=== PATIENT | female | born 1980 | race Caucasian/White ===

== ENCOUNTER → 2017-10-21 | Outpatient (CLI) | payer OTHER ==
[2017-10-21 16:42] LABS: Basophils % (A) 1 %; Eosinophils # (A) 0.2 k/uL (0-0.7); Eosinophils % (A) 3 %; HCT 35.9 % (34.0-46.0); HGB 12.4 gm/dL (11.4-16.0); Lymphocytes # (A) 1.9 k/uL (1.0-4.8); Lymphocytes % (A) 34 %; MCH 31.6 pg (25.0-35.0); MCHC 34.5 g/dL (31.0-37.0); MCV 91.8 fL (80.0-100.0); Mean Platelet Volume 7.3; Monocytes # (A) 0.3 k/uL (0-1.0); Monocytes % (A) 6 %; Neutrophils % (A) 53 %; Platelet Count 242 k/uL (150-450); RBC 3.91 m/uL (3.80-5.40); RDW 12.4 % (11.5-15.5); WBC 5.6 k/uL (3.8-10.6)
== END | disposition home or self-care (01) ==
LOC: LABWHC1 16:12
PROVIDERS: ATTEND Obstetrics & Gynecology
DX: Z01.812 Encounter for preprocedural laboratory examination (principal)
CPT/HCPCS: 36415; 85025

== ENCOUNTER 2017-11-04 06:04 | Day surgery (SDC) | payer OTHER ==
--- NOTE | 2017-10-24 17:51 | P.HPOB ---
History of Present Illness H&P Date: 10/24/17 Chief Complaint: menorrhagia and family planning Patient is a 37-year-old female who has heavy vaginal bleeding that is irregular. Symptoms been present for over a year for workup as previously been done. She ended up having carpal tunnel surgery last her that is why she continued to not have anything done for her bleeding but at this time she is unable to function well due to the heavy bleeding and she is requesting a NovaSure ablation. Risks/benefits/alternatives to a NovaSure procedure with D& C and laparoscopic tubal occlusion were discussed with the patient in detail and all questions were answered for her prior to proceeding to the operating room. Past medical history none: Past surgical history carpal tunnel: Medications oral contraceptives: ALLERGIES none: Social history is unremarkable for tobacco and only occasional alcohol use excellent Patient on physical exam has vital signs are stable and afebrile. Heart regular, lungs clear, extremities without pain. Osteopathic exams unremarkable. Abdomen soft nontender positive bowel sounds are noted and a pelvic exam is otherwise unremarkable. Assessment menorrhagia with family planning. Plan D&C with hysteroscopy and NovaSure with lap scopic tubal occlusion Exam Osteopathic Statement: *. No significant issues noted on an osteopathic structural exam other than those noted in the History and Physical/Consult.
[2017-10-31 08:49] VITALS: BMI 25.4
[~2017-11-04 06:04] MED LIST: DEXAMETHASONE SOD PHOSPHATE 10 MG/ML 1 ML VIAL IV ONE; LACTATED RINGERS 1,000 ML IV SCH; MIDAZOLAM 2 MG/2 ML VIAL IV PRN; ONDANSETRON 4 MG/2 ML VIAL IVP ONE; Pre Op ABX Message 1 EACH MISC MISCELLANE ONE; SCOPOLAMINE 1.5MG/72HR PATCH TRANSDERM ONE; fentaNYL (PF) 50 MCG/ML 2 ML AMP IV PRN
[2017-11-04] MEDS ORDERED: KETOROLAC 30 MG/ML 1 ML VIAL ONE (07:37)
[2017-11-04] MEDS ORDERED: GLYCOPYRROLATE 0.2 MG/ML 2 ML VIAL ONE (07:37)
[2017-11-04] MEDS ORDERED: NEOSTIGMINE 1 MG/ML 10 ML VIAL ONE (07:37)
[2017-11-04] MEDS ORDERED: fentaNYL (PF) 50 MCG/ML 2 ML AMP ONE (07:37)
[2017-11-04] MEDS ORDERED: LIDOCAINE 1% INJ 10MG/ML (20 ML MDV) ONE (07:37)
[2017-11-04] MEDS ORDERED: MIDAZOLAM 2 MG/2 ML VIAL ONE (07:37)
[2017-11-04] MEDS ORDERED: ROCURONIUM BROMIDE 10 MG/ML 10 ML VIAL IV ONE (07:37)
[2017-11-04] MEDS ORDERED: PROPOFOL 10 MG/ML 20 ML VIAL IV ONE (07:37)
[2017-11-04] MEDS ORDERED: BUPIVACAINE (PF) 0.25% 30 ML VIAL SQ ONE (08:01)
--- NOTE | 2017-11-04 08:21 | P.OP ---
Date of Procedure: 11/04/17 Preoperative Diagnosis: Menorrhagia and family planning Postoperative Diagnosis: Same Procedure(s) Performed: D&C with hysteroscopy and NovaSure and a laproscopic tubal occlusion with Filshie clips Anesthesia: EJSE Surgeon: Tremayne Avilez Estimated Blood Loss (ml): 3 IV fluids (ml): 500 Urine output (ml): 20 Pathology: other (Uterine curettings) Condition: stable Disposition: same day Operative Findings: Normal uterus tubes and ovaries Description of Procedure: Patient was taken to the operating suite where a general anesthetic was found be adequate. She was prepped and draped in the normal sterile fashion placed in dorsal lithotomy position. Initially a speculum was inserted into the vagina and the anterior lip of cervix was identified and grasped with an Allis clamp was then sounded to 7 cm and cervix was then dilated. A uterine manipulator was then inserted without difficulty and a red rubber cath was used to drain the bladder of urine. Other instruments were then removed from the vagina. Gloves were then changed and attention was turned to the abdominal portion procedure where 3 mL of quarter percent Marcaine was injected periumbilically. Through this injected anesthetic a 5 mm skin incision was made. Through this incision under direct visualization with an optical trocar and sleeve the camera was inserted. Once peritoneal placement was assured gas was allowed to fully insufflate the abdomen. Once this was accomplished, a second 8 mm skin incision was then made in the midline 3 cm above the pubic symphysis. 8 mm trocar and sleeve were then inserted again under direct visualization. Uterus was then elevated and the fallopian tubes were identified. First the right tube than the left tube had a Filshie clip applied 2 cm from the uterine cornu. Once this was accomplished with no bleeding noted from the mesosalpinx, instruments were removed and gas was allowed to expel from the abdomen. 5 deep breaths were provided during this process. 4-0 Vicryl was then used to close the incision subcuticularly and the remaining 7 mL of quarter percent Marcaine was injected around these incisions. Once this was finished attention was returned to the vagina speculum was reinserted and the uterine manipulator was removed. Allis clamp rate grasped the anterior cervix and once cervix was fully dilated camera was inserted. Proliferative endometrium was noted therefore camera was removed and sharp curettings of the endometrium were obtained. This tissue was collected and placed on Telfa. Once this was accomplished NovaSure system was brought in and inserted with a length of 4 and a width of 2.5 it was tested and passed its patency test. It was then enabled and burned for 104 seconds. At the conclusion of the burn camera was reinserted with excellent burn noted. All instruments were then removed sponge, lap, needle counts were all correct 2. Patient was then taken to the recovery room in stable and satisfactory condition. Plan - Discharge Summary New Discharge Prescriptions: New Ibuprofen [Motrin] 600 mg PO Q6HR PRN #30 tab PRN Reason: Pain No Action Vitamin C/Biotin [Hair, Skin and Nails] 1 tab PO DAILY Cyanocobalamin (Vitamin B-12) [Vitamin B-12] 2,000 mcg PO DAILY Norgestimate-Ethinyl Estradiol [Ortho Tri-Cyclen 28 Tablet] 1 each PO DAILY Spark Vitamin 1 tab PO DAILY Discharge Medication List Cyanocobalamin (Vitamin B-12) [Vitamin B-12] 2,000 mcg PO DAILY 10/31/17 [ History] Norgestimate-Ethinyl Estradiol [Ortho Tri-Cyclen 28 Tablet] 1 each PO DAILY 12/13 [History] Spark Vitamin 1 tab PO DAILY 10/31/17 [History] Vitamin C/Biotin [Hair, Skin and Nails] 1 tab PO DAILY 10/31/17 [History] Ibuprofen [Motrin] 600 mg PO Q6HR PRN #30 tab 11/04/17 [Rx] Follow up Appointment(s)/Referral(s): Tremayne Avilez DO [Doctor of Osteopathic Medicine] - 2 Weeks Activity/Diet/Wound Care/Special Instructions: No heavy lifting, limit stairs and driving and pelvic rest today. If any high temperatures, heavy bleeding, or severe pain call my office Discharge Disposition: HOME SELF-CARE
[2017-11-04 08:43] VITALS: TEMP 96.8
[2017-11-04] MEDS: MORPHINE SULFATE 10 MG/ML SYRINGE IVP ONE ×5 (08:43→09:08)
[2017-11-04] MEDS ORDERED: LACTATED RINGERS 1,000 ML IV ONE (09:01)
[2017-11-04] MEDS ORDERED: PROMETHAZINE INJ 25 MG/ML 1 ML VIAL IVPB ONE (09:17)
[2017-11-04 10:54] VITALS: BP 109/67; PULSE 54; RESP 16
== END 2017-11-04 11:28 | disposition home or self-care (01) ==
LOC: OR 06:04
PROVIDERS: ATTEND Obstetrics & Gynecology
DX: N92.0 Excessive and frequent menstruation with regular cycle (principal); N92.6 Irregular menstruation, unspecified; Z30.2 Encounter for sterilization; Z79.3 Long term (current) use of hormonal contraceptives
CPT/HCPCS: 81025; 88305; 58671; 58563; J2250; J1100; J2550; J2710; J2270; J2405; J2001; J3010; J1885; J2704

== ENCOUNTER → 2022-11-27 | Outpatient (CLI) | payer OTHER ==
--- NOTE | 2022-11-28 09:30 | MM ---
Reason for Exam: Screening (asymptomatic). Baseline mammogram. Patient History: Menarche at age 9. First Full-Term at age 16. Patient has history of breast feeding. Patient used Hormonal Contraceptives for 20 years. Last menstrual period: 09/26/2022 Risk Values: Pricilla 5 year model risk: 0.6%. NCI Lifetime model risk: 7.8%. Prior Study Comparison: Patient's first Mammogram. Tissue Density: The breast tissue is heterogeneously dense. This may lower the sensitivity of mammography. Findings: Analyzed By CAD. Focal asymmetry in the posterior depth outer upper aspect left breast warrants further workup. Overall Assessment: Incomplete: need additional imaging evaluation, BI-RAD 0 Management: Special View Mammogram of the left breast. Return for additional spot views and true lateral views left breast. 3-D imaging performed if possible. (Summation density versus true lesion) Patient should continue monthly self-breast exams. A clinical breast exam by your physician is recommended on an annual basis. This exam should not preclude additional follow-up of suspicious palpable abnormalities. Note on Pricilla scores and lifetime risk: 1. A Pricilla score greater than 3% is considered moderate risk. If this is the case, consider specialist referral to assess eligibility for a risk reducing agent. 2. If overall lifetime risk for the development of breast cancer is 20% or higher, the patient may qualify for future screening with alternating mammogram and breast MRI. Electronically signed and approved by: Avel Tristan M.D.
== END | disposition home or self-care (01) ==
LOC: RADMAMWWP 07:45
PROVIDERS: ATTEND Obstetrics & Gynecology
DX: Z12.31 Encounter for screening mammogram for malignant neoplasm of breast (principal)
CPT/HCPCS: 77067

== ENCOUNTER → 2022-11-29 | Outpatient (CLI) | payer OTHER ==
--- NOTE | 2022-11-29 11:49 | USB ---
Reason for Exam: Additional evaluation requested from abnormal screening. Patient History: Menarche at age 9. First Full-Term at age 16. Patient has history of breast feeding. Patient used Hormonal Contraceptives for 20 years. Risk Values: Pricilla 5 year model risk: 0.6%. NCI Lifetime model risk: 7.8%. Technique: Method: Targeted. Prior Study Comparison: 11/27/2022 Bilateral MG screening mammo w CAD, [facility]. Findings: The upper outer quadrant of the left breast, the axilla of the left breast and the retroareolar of the left breast were scanned. Targeted ultrasound left breast shows a 8 x 4 x 8 mm benign appearing subcentimeter lymph node at 2:00 position 10 cm distance from nipple. No additional concerning solid or cystic mass or fluid collection is seen. Overall Assessment: Benign, BI-RAD 2 Management: Screening Mammogram of both breasts in 1 year. Return to routine follow-up. Results were given to the patient verbally at the time of exam. Electronically signed and approved by: Avel Tristan M.D.
== END | disposition home or self-care (01) ==
LOC: RADMAMWWP 10:20
PROVIDERS: ATTEND Obstetrics & Gynecology
DX: R92.8 Other abnormal and inconclusive findings on diagnostic imaging of breast (principal)
CPT/HCPCS: 77061; 77065

== ENCOUNTER → 2023-05-16 | Outpatient (CLI) | payer OTHER | END | disposition home or self-care (01) | LOC: LABWHC1 11:15 | PROVIDERS: ATTEND Dermatology MOHS-Micrographic Surgery | DX: B00.1 Herpesviral vesicular dermatitis (principal) | CPT/HCPCS: 36415; 82784 ==

== ENCOUNTER → 2023-12-03 | Outpatient (CLI) | payer OTHER ==
--- NOTE | 2023-12-04 08:18 | MM ---
Reason for Exam: Screening (asymptomatic). Last screening mammogram was performed 12 month(s) ago. Patient History: Menarche at age 9. First Full-Term at age 16. Patient has history of breast feeding. Patient used Hormonal Contraceptives for 20 years. Risk Values: Pricilla 5 year model risk: 0.6%. NCI Lifetime model risk: 7.7%. Prior Study Comparison: 11/27/2022 Bilateral MG screening mammo w CAD, [facility]. 11/29/2022 Left MG 3D work up w/cad , [facility]. Tissue Density: The breasts are heterogeneously dense, which may obscure small masses. Findings: Analyzed By CAD. There is no suspicious group of microcalcifications or new suspicious mass in either breast. Asymmetric tissue in the left upper outer quadrant stable. Overall Assessment: Benign, BI-RAD 2 Management: Screening Mammogram of both breasts in 1 year. . Patient should continue monthly self-breast exams. A clinical breast exam by your physician is recommended on an annual basis. This exam should not preclude additional follow-up of suspicious palpable abnormalities. Note on Pricilla scores and lifetime risk: 1. A Pricilla score greater than 3% is considered moderate risk. If this is the case, consider specialist referral to assess eligibility for a risk reducing agent. 2. If overall lifetime risk for the development of breast cancer is 20% or higher, the patient may qualify for future screening with alternating mammogram and breast MRI. Electronically signed and approved by: Kole Holland M.D. Radiologis
== END | disposition home or self-care (01) ==
LOC: RADMAMWWP 09:13
PROVIDERS: ATTEND Pediatrics
DX: Z12.31 Encounter for screening mammogram for malignant neoplasm of breast (principal)
CPT/HCPCS: 77063; 77067

== ENCOUNTER → 2025-02-25 | Outpatient (CLI) | payer OTHER ==
--- NOTE | 2025-02-26 17:04 | MM ---
Reason for Exam: Screening (asymptomatic). Last mammogram was performed 1 year(s) and 2 month(s) ago. Patient History: Menarche at age 9. First Full-Term at age 16. Patient has history of breast feeding. Patient used Hormonal Contraceptives for 20 years. Risk Values: Pricilla 5 year model risk: 0.6%. NCI Lifetime model risk: 7.7%. Prior Study Comparison: 11/27/2022 Bilateral MG screening mammo w CAD, [facility]. 11/29/2022 Left MG 3D work up w/cad LT, [facility]. 12/03/2023 Bilateral MG 3D screening mammo w/cad, [facility]. Tissue Density: The breasts are heterogeneously dense, which may obscure small masses. Findings: Analyzed By CAD. Chronic nodularity posterior upper outer quadrant left breast near the axillary tail. There is no suspicious group of microcalcifications or new suspicious mass in either breast. Overall Assessment: Benign, BI-RAD 2 Management: Screening Mammogram of both breasts in 1 year. Patient should continue monthly self-breast exams. A clinical breast exam by your physician is recommended on an annual basis. This exam should not preclude additional follow-up of suspicious palpable abnormalities. Note on Pricilla scores and lifetime risk: 1. A Pricilla score greater than 3% is considered moderate risk. If this is the case, consider specialist referral to assess eligibility for a risk reducing agent. 2. If overall lifetime risk for the development of breast cancer is 20% or higher, the patient may qualify for future screening with alternating mammogram and breast MRI. [facility], , 02/26/2025 5:01 PM. Electronically signed and approved by: Anselmo Lanier M.D. Radiologist
== END | disposition home or self-care (01) ==
LOC: RADMAMWWP 15:23
PROVIDERS: ATTEND Obstetrics & Gynecology
DX: Z12.31 Encounter for screening mammogram for malignant neoplasm of breast (principal); R92.333 Mammographic heterogeneous density, bilateral breasts; Z92.0 Personal history of contraception
CPT/HCPCS: 77063; 77067